=== PATIENT | female | born 2000 | race Two or more races ===

== ENCOUNTER 2024-07-15 23:19 | Emergency (ER) | payer OTHER ==
[~2024-07-15] VITALS: Ht 157.5 cm; Wt 77.1 kg
[2024-07-15] MEDS ORDERED: ELVITEG/COB/EMTRI/TENOFO DISOP 1 UDTAB TABLET PO ONE ×2 (23:30→23:32)
== END 2024-07-16 00:23 | disposition home or self-care (01) ==
LOC: ER 23:20
DX: S69.81XA Other specified injuries of right wrist, hand and finger(s), initial encounter (principal); W46.0XXA Contact with hypodermic needle, initial encounter; X58.XXXA Exposure to other specified factors, initial encounter; Y93.89 Activity, other specified; Y92.89 Other specified places as the place of occurrence of the external cause; Y99.8 Other external cause status

== ENCOUNTER 2024-08-30 03:35 | Outpatient (CLI) | payer OTHER | END 2024-08-30 04:00 | disposition home or self-care (01) | LOC: PPH VACUNA 03:35 | PROVIDERS: ATTEND Emergency Medicine Pediatric Emergency Medicine | DX: Z23 Encounter for immunization (principal) ==

== ENCOUNTER 2025-09-23 09:30 | Outpatient (CLI) | payer OTHER | END 2025-09-23 09:40 | disposition home or self-care (01) | LOC: PPH VACUNA 09:30 | PROVIDERS: ATTEND Emergency Medicine Pediatric Emergency Medicine | DX: Z23 Encounter for immunization (principal) ==